=== PATIENT | female | born 1970 | race Asian ===

== ENCOUNTER 2017-08-13 13:30 | Inpatient (IN) | payer SELFPAY ==
[~2017-08-13] VITALS: Ht 160 cm; Wt 54.4 kg
[2017-08-13 13:35] VITALS: BP_SYST 188
[2017-08-13] MEDS ORDERED: NITROGLYCERIN 1 INCH (GM) OINT. TP ONE (14:00)
[2017-08-13] MEDS ORDERED: cloNIDine HCL 0.1 MG TABLET PO ONE (14:00)
[2017-08-13] MEDS ORDERED: ASPIRIN 81 MG TAB.CHEW PO ONE (14:00)
[2017-08-13 14:06] LABS: BILIRUBIN,URINE NEGATIVE (NEGATIVE); CLARITY/URINE CLEAR (CLEAR); COLOR,URINE YELLOW (YELLOW); GLUCOSE,URINE 3+ (NEGATIVE); KETONES,URINE NEGATIVE (NEGATIVE); LEUKOCYTE ESTERASE ,URINE NEGATIVE (NEGATIVE); NITRITE, URINE NEGATIVE (NEGATIVE); PROTEIN URINE 2+ (NEGATIVE); UROBILINOGEN,URINE 0.2 (0.2-1.0)
[2017-08-13 14:19] LABS: BLOOD, URINE TRACE (NEGATIVE)
[2017-08-13 14:37] LABS: CALCIUM 9.2 mg/dL (8.4-11.0); CREATININE 0.65 mg/dL (0.55-1.30); POTASSIUM 4.2 mmol/L (3.5-5.1)
[2017-08-13 14:40] LABS: PROTHROMBIN TIME 9.7 SECS (9.5-12.5)
[2017-08-13 14:42] LABS: ALBUMIN 3.8 g/dL (3.4-4.8); TOTAL BILIRUBIN 0.5 mg/dL (0.0-1.0)
[2017-08-13 14:43] LABS: BACTERIA,URINE FEW /HPF (None Seen); MUCUS,URINE None Seen /LPF (None Seen); RBC,URINE 0-3 /HPF (0-3); WBC,URINE 0-3 /HPF (0-3)
[2017-08-13 15:04] LABS: BASOPHILS % (AUTO) 0.1 % (0.0-2.0); EOSINOPHILS % (AUTO) 0.4 % (0.0-4.0); HEMATOCRIT 44.9 % (36-48); LYMPHOCYTES # (AUTO) 1.4 K/uL (1.0-5.5); LYMPHOCYTES % (AUTO) 15.2 % (20.5-51.5); MEAN CORPUSCULAR HEMOGLOBIN 30 pg (27-31); MEAN CORPUSCULAR HGB CONC 33 % (32-36); MEAN CORPUSCULAR VOLUME 89 fL (79.0-98.0); MONOCYTES # (AUTO) 0.4 K/uL (0.0-1.0); MONOCYTES % (AUTO) 4.5 % (1.7-9.3); NEUTROPHILS # (AUTO) 7.4 K/uL (1.8-7.7); NEUTROPHILS % (AUTO) 79.8 % (40.0-70.0); PLATELET COUNT (AUTO) 293 K/uL (130-430); RED BLOOD CELL COUNT(AUTO) 5.06 MIL/uL (4.2-6.2); RED CELL DISTRIBUTION WIDTH 12.5 % (9.0-15.0); WHITE BLOOD COUNT (AUTO) 9.2 K/uL (4.8-10.8)
[2017-08-13 16:15] VITALS: BP_SYST 118
[2017-08-13] MEDS ORDERED: cloNIDine HCL 0.1 MG TABLET PO PRN (16:30)
[2017-08-13] MEDS ORDERED: DOCUSATE SODIUM 100 MG CAPSULE PO PRN (16:30)
[2017-08-13] MEDS ORDERED: ZOLPIDEM TARTRATE 5 MG TABLET PO PRN (16:30)
[2017-08-13] MEDS ORDERED: MUPIROCIN 2% TOPICAL OINTMENT 22 GM NS PRN (16:30)
[2017-08-13] MEDS ORDERED: ONDANSETRON HCL 4 MG/2 ML VIAL IVP PRN (16:30)
[2017-08-13] MEDS ORDERED: POTASSIUM CHLORIDE 20 MEQ TAB.PRT.SR PO PRN (16:30)
[2017-08-13] MEDS ORDERED: MORPHINE 2 MG/ML INJ. SYRINGE IVP PRN ×2 (16:30)
[2017-08-13] MEDS ORDERED: ACETAMINOPHEN 325 MG TABLET PO PRN (16:30)
[2017-08-13] MEDS ORDERED: MAGNESIUM SULFATE 50 ML IV PRN (16:30)
[2017-08-13] MEDS ORDERED: LORazepam 2 MG/ML VIAL IVP PRN (16:30)
[2017-08-13 17:00] VITALS: BP_SYST 120
[2017-08-13] MEDS: NACL 0.9% 1,000 ML IV SCH (18:44)
[2017-08-13 20:00] VITALS: BP_SYST 119
[2017-08-13 20:24] VITALS: BP_SYST 120
[2017-08-13] MEDS: METOPROLOL TARTRATE 50 MG TABLET PO SCH (20:48)
[2017-08-13] MEDS ORDERED: HEPARIN SODIUM,PORCINE 5000 UNITS/ML VIAL SUBCUT SCH (21:00)
[2017-08-13 23:45] LABS: BARBITURATE, URINE NEGATIVE (NEG <=200); BENZODIAZEPINE, URINE NEGATIVE (NEG <=150); CANNABINOID, URINE NEGATIVE (NEG <=50); COCAINE, URINE NEGATIVE (NEG <=150); METHAMPHETAMINES SCREEN,URINE NEGATIVE (NEG <=500); OPIATE, URINE NEGATIVE (NEG <=100); PHENCYCLIDINE SCREEN,URINE NEGATIVE (NEG <=25); UR TRICYCLIC ANTIDEPRESSANTS NEGATIVE (NEG <=300); URINE AMPHETAMINE NEGATIVE (NEG <=500); URINE METHADONE NEGATIVE (NEG <=200); URINE OXYCODONE SCREEN NEGATIVE (NEG <=100); URINE PROPOXYPHENE SCREEN NEGATIVE (NEG <=300)
[2017-08-14 00:14] VITALS: BP_SYST 109
[2017-08-14] MEDS: NACL 0.9% 1,000 ML IV SCH (04:52)
[2017-08-14 07:48] VITALS: BP_SYST 145
[2017-08-14] MEDS ORDERED: METO-442 PEG (07:51)
[2017-08-14 07:58] VITALS: BP_SYST 145
[2017-08-14] MEDS: METOPROLOL TARTRATE 50 MG TABLET PO SCH (08:38)
== END 2017-08-14 10:55 | disposition left against medical advice (07) | DRG 305 ==
LOC: SED 13:30 → STU 15:44
PROVIDERS: ADMIT General Practice; ATTEND General Practice
DX: I10 Essential (primary) hypertension (principal); E87.1 Hypo-osmolality and hyponatremia; W18.39XA Other fall on same level, initial encounter; F41.0 Panic disorder [episodic paroxysmal anxiety]; M54.2 Cervicalgia; Y93.89 Activity, other specified; Y92.89 Other specified places as the place of occurrence of the external cause; Y99.8 Other external cause status
CPT/HCPCS: 36415; 71045; 80053; 80307; 81000-TC; 83880; 84484; 85025; 85610-TC; 93005; 99285; J7030